=== PATIENT | female | born 1985 | race Caucasian/White ===

== ENCOUNTER 2018-09-23 04:05 | Emergency (ER) | payer OTHER ==
[~2018-09-23] VITALS: Ht 162.6 cm; Wt 90.7 kg
[2018-09-23 04:12] VITALS: Ht 162.6 cm; Wt 90.7 kg
[2018-09-23 05:10] VITALS: BP 141/105
== END 2018-09-23 05:10 | disposition home or self-care (01) ==
LOC: ED 04:05
DX: N76.0 Acute vaginitis (principal)
CPT/HCPCS: 82962